=== PATIENT | male | born 1995 | race Caucasian/White ===

== ENCOUNTER 2019-08-01 04:29 | Emergency (ER) | payer SELFPAY ==
[~2019-08-01] VITALS: Ht 182.9 cm; Wt 93.9 kg
[2019-08-01 04:37] VITALS: Ht 182.9 cm; Wt 93.9 kg
[2019-08-01 07:11] VITALS: BP 122/78
== END 2019-08-01 07:11 | disposition home or self-care (01) ==
LOC: ED 04:29
DX: R51 Headache (principal); R50.9 Fever, unspecified
CPT/HCPCS: J1885; J8597